=== PATIENT | female | born 1985 | race Caucasian/White ===

== ENCOUNTER 2021-05-16 05:44 | Emergency (ER) | payer BC, OTHER ==
[2021-05-16 05:52] VITALS: TEMP 98.4
[2021-05-16] MEDS ORDERED: ASPIRIN 81 MG PO STA (05:59)
--- NOTE | 2021-05-16 06:16 | XR ---
EXAMINATION TYPE: XR chest 2V DATE OF EXAM: 05/16/2021 COMPARISON: NONE HISTORY: Chest pain. TECHNIQUE: Frontal and lateral views of the chest are obtained. FINDINGS: Overlying EKG leads. There is no focal air space opacity, pleural effusion, or pneumothora x seen. The cardiac silhouette size is within normal limits. The osseous structures are intact. IMPRESSION: No acute process.
[2021-05-16 06:22] LABS: Basophils # (A) 0.1 k/uL (0-0.2); Basophils % (A) 1 %; Eosinophils # (A) 0.3 k/uL (0-0.7); Eosinophils % (A) 3 %; HCT 41.3 % (34.0-46.0); HGB 13.4 gm/dL (11.4-16.0); Lymphocytes # (A) 1.6 k/uL (1.0-4.8); Lymphocytes % (A) 17 %; MCH 30.7 pg (25.0-35.0); MCHC 32.4 g/dL (31.0-37.0); MCV 94.7 fL (80.0-100.0); Mean Platelet Volume 7.5; Monocytes # (A) 0.6 k/uL (0-1.0); Monocytes % (A) 6 %; Neutrophils # (A) 6.9 k/uL (1.3-7.7); Neutrophils % (A) 72 %; Platelet Count 339 k/uL (150-450); RBC 4.36 m/uL (3.80-5.40); RDW 12.8 % (11.5-15.5); WBC 9.5 k/uL (3.8-10.6)
--- NOTE | 2021-05-16 06:34 | ED ---
Chest Pain HPI - General Chief Complaint: Chest Pain Stated Complaint: chest pain Time Seen by Provider: 05/16/21 05:58 Source: patient, RN notes reviewed Mode of arrival: wheelchair Limitations: no limitations - History of Present Illness Initial Comments: 35-year-old female presents emergency Department chief complaint of left-sided, centralized chest discomfort. Patient states started yesterday morning has progressed. Patient states that hurts when she takes a deep breath, hurts when she moves around. She states that she works at home, she states she is pretty sedentary. No history DVT or PE no prior cardiac history denies any shortness of breath at rest but states with movement it is worse. She denies any trauma no rashes no nausea and diarrhea constipation or fevers chills no cough or URI symptoms - Related Data Allergies Allergy/AdvReac Type Severity Reaction Status Date / Time No Known Allergies Allergy Verified 05/16/21 05:52 Review of Systems ROS Statement: Those systems with pertinent positive or pertinent negative responses have been documented in the HPI. ROS Other: All systems not noted in ROS Statement are negative. EKG Findings - EKG Comments: EKG Findings:: EKG performed at 5:58 normal sinus rhythm with rate of 95 IN 132 QRS 86 QT/ QTC 358/411 Past Medical History Past Medical History: No Reported History History of Any Multi-Drug Resistant Organisms: None Reported Past Surgical History: Section Past Psychological History: No Psychological Hx Reported Smoking Status: Current every day smoker Past Alcohol Use History: None Reported Past Drug Use History: None Reported General Exam Limitations: no limitations General appearance: alert, in no apparent distress Head exam: Present: atraumatic, normocephalic, normal inspection Eye exam: Present: normal appearance, PERRL, EOMI. Absent: scleral icterus, conjunctival injection, periorbital swelling ENT exam: Present: normal exam, normal oropharynx, mucous membranes moist Neck exam: Present: normal inspection. Absent: tenderness, meningismus, lymphadenopathy Respiratory exam: Present: normal lung sounds bilaterally, chest wall tenderness. Absent: respiratory distress, wheezes, rales, rhonchi, stridor Cardiovascular Exam: Present: regular rate, normal rhythm, normal heart sounds. Absent: systolic murmur, diastolic murmur, rubs, gallop, clicks GI/Abdominal exam: Present: soft, normal bowel sounds. Absent: distended, tenderness, guarding, rebound, rigid Neurological exam: Present: alert Skin exam: Present: warm, dry, intact, normal color. Absent: rash Course Vital Signs 05/16/21 05/16/21 05:48 07:36 Temperature 98.4 F Pulse Rate 105 H 93 Respiratory 20 16 Rate Blood Pressure 117/74 117/82 O2 Sat by Pulse 100 98 Oximetry Chest Pain MDM - MDM Labs revealed mild transaminitis though patient does not have any current pain or symptoms. I did update patient results. CT does show evidence of groundglass opacity this may related to underlying infection. Patient offered COVID-19 testing. Patient states that she has testing home. Patient is feeling improved negative troponin. Patient discharged in stable condition return parameters were discussed. Disposition Clinical Impression: Chest wall pain, Atypical chest pain, Transaminitis Disposition: HOME SELF-CARE Condition: Stable Instructions (If sedation given, give patient instructions): Chest Pain (ED) Additional Instructions: Please follow up with your primary care physician for recheck of your liver function tests.Please return to the Emergency Department if symptoms worsen or any other concerns. Is patient prescribed a controlled substance at d/c from ED?: No Referrals: None,Stated [Primary Care Provider] - 1-2 days Time of Disposition: 08:39
[2021-05-16 06:37] LABS: INR 0.8 (<1.2); Partial Thromboplastin Time 25.4 sec (22.0-30.0); Prothrombin Time 9.5 sec (9.0-12.0)
[2021-05-16 06:42] LABS: ALT 190 U/L (4-34); AST 134 U/L (14-36); African American GFR (CKD) >90 (>60 ml/min/1.73 sqM); Albumin 3.8 g/dL (3.5-5.0); Alkaline Phosphatase 130 U/L (38-126); Anion Gap 5 mmol/L; Blood Urea Nitrogen 11 mg/dL (7-17); Calcium 8.3 mg/dL (8.4-10.2); Carbon Dioxide 20 mmol/L (22-30); Chloride 111 mmol/L (98-107); Glucose 101 mg/dL (74-99); HCG,Qualitative Serum Not Detected; Lipase 73 U/L (23-300); Non-African American GFR(CKD) >90 (>60 ml/min/1.73 sqM); Potassium 4.3 mmol/L (3.5-5.1); Sodium 136 mmol/L (137-145); Total Bilirubin 1.2 mg/dL (0.2-1.3); Total Protein 6.8 g/dL (6.3-8.2)
--- NOTE | 2021-05-16 08:21 | CT ---
EXAMINATION TYPE: CT chest angio for PE DATE OF EXAM: 05/16/2021 COMPARISON: No previous CT scan is available for comparison HISTORY: Pain and pressure CT DLP: 317.5 mGy.cm. Automated Exposure Control for Dose Reduction was Utilized. TECHNIQUE AND CONTRAST: CTA scan of the thorax is performed without and with IV Contrast, patient injected with 100 ml mL of Isovue 370, pulmonary angiogram protocol. MIP Images are created on an independent workstation and reviewed. FINDINGS: No definite filling defect within the pulmonary trunk, main pulmonary arteries, lobar, segmental and proximal subsegmental branches to suggest pulmonary embolism. Distal subsegmental branches are subopt imally assessed. The pulmonary trunk measures 2.3 cm. No gross cardiomegaly. 11 mm right hilar lymph node, nonspecific. No other pathologically enlarged lymph nodes in the chest. Minimal bilateral basal groundglass opacities and subsegmental atelectasis. 3 mm right midlung zone n odule, with left upper lobe pleural-based 2 mm nodule, requiring no further follow-up if low risk pat ient. If high risk patient, optional follow-up CT scan in 12 months can be considered. Unremarkable l ungs otherwise. No pleural or pericardial effusion. Patent central airways. Unremarkable upper abdome n. No aggressive bone lesion. IMPRESSION: No major or central pulmonary embolism. Incidental findings as described above.
[2021-05-16 08:47] VITALS: BP 130/88; PULSE 80; RESP 18
[2021-05-16 11:08] LABS: Hepatitis A Antibody IgM Nonreactive (Nonreactive); Hepatitis B Core IgM Nonreactive (Nonreactive); Hepatitis B Surface Antigen Nonreactive (Nonreactive); Hepatitis C IgG Antibody Nonreactive (Nonreactive)
== END 2021-05-16 08:46 | disposition home or self-care (01) ==
LOC: EC 05:44
DX: R07.89 Other chest pain (principal); R74.01 Elevation of levels of liver transaminase levels; F17.200 Nicotine dependence, unspecified, uncomplicated
CPT/HCPCS: 36415; 93005; 85379; 80053; 80074; 83690; 83735; 84484; 85025; 85610; 85730; 84703; 71046; 71275; 99285; Q9967